=== PATIENT | male | born 1990 ===

== ENCOUNTER 2022-03-17 11:31 | Emergency (ER) | payer OTHER ==
[~2022-03-17] VITALS: Ht 167.6 cm; Wt 73.2 kg
[2022-03-17 12:10] VITALS: BP 138/91
== END 2022-03-17 13:53 | disposition home or self-care (01) ==
LOC: EMS 11:42
DX: S09.90XA Unspecified injury of head, initial encounter (principal); F10.20 Alcohol dependence, uncomplicated; F12.90 Cannabis use, unspecified, uncomplicated; W01.10XA Fall on same level from slipping, tripping and stumbling with subsequent striking against unspecified object, initial encounter; Y93.02 Activity, running; Y92.89 Other specified places as the place of occurrence of the external cause; Y99.8 Other external cause status
CPT/HCPCS: 70450; 99284